=== PATIENT | male | born 1940 | race Caucasian/White ===

== ENCOUNTER 2017-04-09 10:19 | Inpatient (IN) | payer MEDICARE, OTHER ==
[~2017-04-09] VITALS: Ht 185.4 cm; Wt 115.5 kg
--- NOTE | ~2017-04-09 | ECH ---
Transthoracic Echocardiography Report (TTE) Demographics Patient Name NICKI JARVIS Date of Study 04/09/2017 Patient Number [id number] Visit Number [id number] Date of 1940 Room Number 406 Accession Number [id number] Gender Male Age 76 year(s) Referring Belle Abdalla MD Ticket Chopper Assembler Anne Trivedi [facility] Physician Nemesio Valderrama MD Physician Interpreting Christine Lubin MD Communications Senior Associate Physician Supervising Ordering Physician Nemesio Valderrama MD/JEAN GRECO Nurse Stress Adjunct Professor Of Law Conclusions Summary Technically difficult exam. The estimated left ventricular ejection fraction is 60-65%. Mild to moderate left ventricular hypertrophy. Diastolic assessment reveals Grade I diastolic dysfunction. Bubble study was done, there is no evidence for a PFO or ASD. The ascending aorta appears mildly dilated. The maximum diameter measures 4.19 cm. Procedure Type of Study TTE procedure Procedure Date Date: 04/09/2017 Start: 02:26 PM Technical Quality: Fair due to body habitus. Indications:TIA. Appropriate Use Criteria: 9 Contrast Medium: Bubble Study. Height: 73 inches Weight: 255 pounds BSA: 2.39 m Rhythm: Within normal limits HR: 71 bpm BP: 187/71 mmHg M-Mode/2D Measurements LV Diastolic Dimension: 4.29 cm LV Systolic Dimension: 2.31 cm LV Septum Diastolic: 1.36 cm LV PW Diastolic: 1.36 cm AO Root Dimension: 3.53 cm Cardiac Output: 6.31 l/min LA Dimension: 2.63 cm Cardiac Index: 2.64 l/min*m RV Diastolic Dimension: 2.88 cm LA volume index: 16 ml/m LVOT: 2.28 cm LVOT VTI: 21.78 cm RV Base: 3.07 cm LV Stroke volume: 88.88 ml RV Mid: 2.57 cm LV Stroke volume index: 37.19 ml/m RV Length: 7 cm TAPSE: 14 cm Doppler Measurements AV Peak Velocity: 1.25 m/s MV Peak E-Wave: 0.76 m/s AV Peak Gradient: 6.25 mmHg MV Peak A-Wave: 0.86 m/s AV Mean Gradient: 2.66 mmHg MV E/A Ratio: 0.89 LVOT Peak Velocity: 0.93 m/s MV P1/2t: 86.5 msec AV Area (Continuity):4.03 cm MV Deceleration Time: 298.4 msec MV Area (PHT): 2.54 cm PV Peak Velocity: 1.03 m/s PV Peak Gradient: 4.22 mmHg RA Area: 14.43 cm Findings Left Ventricle The left ventricle is normal in size . Mild to moderate left ventricular hypertrophy. Diastolic assessment reveals Grade I diastolic dysfunction. Right Ventricle Normal right ventricle structure and function. Left Atrium Normal left atrial size. Bubble study was done, there is no evidence for a PFO or ASD. Right Atrium Normal right atrial size. Mitral Valve Normal mitral valve structure and function. Aortic Valve The aortic valve is mildly sclerotic. Tricuspid Valve Normal tricuspid valve structure and function. Pulmonic Valve The pulmonic valve is not well visualized. Pericardial Effusion No evidence of pericardial effusion. Miscellaneous The ascending aorta appears mildly dilated. The maximum diameter measures 4.19 cm. Pleural Effusion No evidence of pleural effusion. Signature
--- NOTE | ~2017-04-09 | HP ---
ADMIT: 04/09/2017 RM/LOC: 406 [facility] MR#: [id number] [address] [facility] [address] [place] [id number] NICKI JARVIS [address] [place] [id number] History and Physical SEX: M AGE: 76 : 1940 DATE OF SERVICE: CHIEF COMPLAINT: Right arm weakness and expressive aphasia. HISTORY OF PRESENT ILLNESS: Mr. Jarvis is a very pleasant, 76-year-old man. He has a past medical history significant for history of coronary artery disease, carotid artery disease, COPD, chronic kidney disease, diabetes, and hypertension who was at the [facility] getting an [facility] of his cervical spine. He reports that he was having an MRI done because he had been having some neck pain as well as increasing bilateral lower extremity weakness. He was in the middle of his MRI and reports that he kind of started to feel numb all over. It sounds like when they pulled him out, he had an expressive aphasia. It lasted for a short period of time, maybe a few minutes and then was gone. He reports that then after that, he just felt numb all over. Not right side more than left. Reports that otherwise he has never had anything like this happen before. He did not take anything premedicated. He was brought over to the ER and found to have right-sided weakness which he had not really noticed. Otherwise he is felt warranted admission for further evaluation and treatment. PAST MEDICAL HISTORY: Significant for: 1. BPH. 2. Coronary artery disease, nonobstructive. 3. Carotid artery disease. 4. Chronic bilateral foot drop. 5. Chronic low back pain. 6. Lumbar spinal stenosis. 7. Status post hyperlipidemia. 8. Status post cervical fusion. 9. History of chronic kidney disease stage 3. 10.Diabetes mellitus type 2, controlled. 11.COPD. 12.History of gallstone pancreatitis status post resection. 13.History of left rotator cuff repair. 14.History of TURP. ALLERGIES: LISTED NO KNOWN MEDICAL ALLERGIES. MEDICATIONS: 1. Aspirin 81 mg p.o. daily. 2. Cetirizine 10 mg p.o. daily. 3. Lisinopril 20. 4. Hydrochlorothiazide 12.5 p.o. daily. 5. Pravastatin 40 mg p.o. daily. 6. Tamsulosin 0.4 p.o. daily. SOCIAL HISTORY: He smoked many years ago, but quit. He is . He does not drink or use any significant alcohol. FAMILY HISTORY: Positive for heart disease in his father. ADMIT: 04/09/2017 RM/LOC: 406 [facility] MR#: [id number] [address] [address] NICKI JARVIS [address] [place] [address] History and Physical SEX: M AGE: 76 : 1940 REVIEW OF SYSTEMS: Obtained, was otherwise essentially negative. PHYSICAL EXAMINATION: GENERAL: He is alert and oriented. He is a little bit slow with speaking, which is not new for him. Pupils are equal, round, reactive. Oropharynx has dry mucous membranes. NECK: Stiff. HEART: Normal rate with a regular rhythm. LUNGS: Relatively clear to auscultation and anteriorly. ABDOMEN: Soft, nontender. EXTREMITIES: He has his bilateral lower extremity braces intact. He has 4/5 x ray inspector on the right. He is unable to extend his right 4th digit. He chronically is unable to extend his middle digit. He has slightly diminished ability to hold his wrist back. He has good biceps and triceps strength. ASSESSMENT/PLAN: 1. Transient expressive aphasia with new right-sided weakness. At this time, suspect cerebrovascular accident. We will go ahead and admit, have Neurology see, get an MRI of his brain, get an echo, get carotid Dopplers. We will ask speech, PT/OT to see. Do some Accu-Cheks. Plan to check some labs. We will put him on a full aspirin, he was on a baby aspirin. 2. Carotid artery disease, we will repeat his Dopplers. 3. Hypertension. 4. Diabetes mellitus. 5. Lumbar spinal stenosis. 6. History of cervical fusion. We will go ahead and get a copy of his MRI from the [facility]. Vida Herr MD/ juan carlos JOB #: [id number] CC: Vida Herr, Attending Physician Vida Herr, Family Physician
[~2017-04-09 10:19] MED LIST: ACCUNEB DP0.63 MG/3 IH; ASA CHILDREN'S81 MG PO; BACITRACIN15 G1 TP; CIPRO500 MG PO; DELTASONE DPS10 MG PO; DUONEB DPS3 ML IH; FLAGYL500 MG PO; FLOMAX DPS0.4 MG PO; GLUTOSE 1537.5 GM PO; HUMALOG100 UNIT/1 SQ; MAALOX DPS30 ML PO; NORCO 5-325 TA1 EACH PO; OCEAN NASAL MIS45 ML IN; OMNICEF DPS300 MG PO; PRAVACHOL20 M1 PO; PRAVACHOL20 MG PO; SEA SOFT45 ML NS; SURFAK DPS240 MG PO; THERA1 EACH PO; TYLENOL DPS325 MG PO; ZESTORETIC 10/11 TAB PO; ZOFRAN ODT4 MG PO; [UNRECOGNIZED DRUG - OTHER] PO
--- NOTE | 2017-04-11 09:36 | ER ---
ADMIT: 04/09/2017 RM/LOC: 406 [facility] MR#: [id number] [address] [facility] [address] [place] [phone] NICKI JARVIS [address] [place] [id number] Emergency Room Report SEX: M AGE: 76 : 1940 DATE: 04/09/2017 TIME: 1019 hours. PRIMARY CARE: [facility] and Dr. Herr. Please refer to my T-sheet for complete H and P. HISTORY OF PRESENT ILLNESS: The patient is a 76-year-old, comes in. He was over at the [facility], getting MRI of his neck when he started having slurred speech and inability to move his right arm and numbness, both sides of his arms. By the time he gets here, his speech has improved dramatically. He still feels a little weak in his right hand. PHYSICAL EXAMINATION: VITAL SIGNS: His blood pressure is 98/57, pulse 74, respirations 18, temp 98.4, and sat 94%. GENERAL: No acute distress. HEENT: Grossly normal. LUNGS: Clear. HEART: Regular. ABDOMEN: Soft. SKIN: No rash. NEURO: He is alert and oriented. His speech has improved. His right hand has a little bit of residual weakness and a little bit of slurred speech. I gave him a stroke scale of 3. EMERGENCY ROOM COURSE: CT scan of his brain was negative. EKG was sinus rhythm, no acute changes. Chest x-ray was normal. CBC normal except hemoglobin 13.8. Chemistries normal except BUN 31, glucose 147, creatinine 1.5. Coags normal. I gave him 4 aspirin. I talked to the [facility]. They recommended 24-hour observation for they would accept. Then I talked to Dr. Herr. She will admit to the hospital. ASSESSMENT: 1. Acute transient ischemic attack, improving. 2. Bilateral hand numbness that is improving. 3. Right hand still slightly weak. 4. The patient is a non tPA candidate as he is vastly improved. PLAN: Admit to the hospital. Rebel Kemp MD/ juan carlos JOB #: [id number] CC: Vida Herr MD, Attending Physician Vida Herr MD, Family Physician
--- NOTE | 2017-04-11 17:26 | CO ---
ADMIT: 04/09/2017 RM/LOC: 406 [facility] MR#: [id number] [address] [address] NICKI JARVIS [place] [address] [place] [address] Consultation SEX: M AGE: 76 : 1940 DATE OF CONSULTATION: 04/09/2017 ATTENDING PHYSICIAN: Vida Herr CONSULTING PHYSICIAN: Rm Odonnell MD REASON FOR CONSULTATION: TIA. HISTORY OF PRESENT ILLNESS: The patient is a 76-year-old gentleman with past medical history as below, who was at [facility] today when he developed symptoms. He was actually in MRI scan, and after he was finished with this study, he was feeling numbness below his waist bilaterally and reports that he could not move the either side of the body. Reportedly, there was an episode that he was not able to find his words. By the time of arrival to [facility], majority of the symptoms cleared up. He reports that there is weakness in finger extension in right hand that is persisting. He has never experienced anything similar previously. He does not think that he was panicking or had an anxiety attack. He denies receiving any medications prior to MRI. PAST MEDICAL HISTORY: Significant for coronary artery disease, carotid artery atherosclerosis, chronic bilateral foot drop, BPH, lumbar stenosis, hyperlipidemia, status post cervical fusion, CKD stage 3, diabetes type 2, COPD. ALLERGIES: NO KNOWN DRUG ALLERGIES. MEDICATIONS: 1. Aspirin 81. 2. Cetirizine. 3. Lisinopril 20. 4. Hydrochlorothiazide. 5. Pravastatin 40. 6. Tamsulosin. REVIEW OF SYSTEMS: All systems reviewed, negative except as per HPI. Positive musculoskeletal neck pain, neurological weakness. SOCIAL HISTORY: History of smoking, quit many years ago. No illicit drug use. Alcohol occasionally. Drinks wine. FAMILY HISTORY: Noncontributory to current presentation. PHYSICAL EXAMINATION: VITAL SIGNS: Temperature 95.8, heart rate 72, respirations 16, blood pressure 118/71, saturation 95% on room air. GENERAL: The patient appears to be in no acute discomfort. HEAD: Normocephalic. NECK: Supple. CARDIOVASCULAR: Regular rate and rhythm. ADMIT: 04/09/2017 RM/LOC: 406 [facility] MR#: [id number] [address] [address] NICKI JARVIS [place] [address] [place] [address] Consultation SEX: M AGE: 76 : 1940 CHEST: Normal respiratory rises. ABDOMEN: Nondistended. EXTREMITIES: No clubbing or cyanosis. NEUROLOGICAL EXAMINATION: The patient is alert, appropriately oriented, slower. Halting type of speech. No dysarthria. The patient feels that his speech and language are at baseline. Cranial nerve examination; visual ward are intact. Pupils equal, reactive. Extraocular muscles intact. Facial sensation normal. Face is symmetric. Gacewhy-dg-pbdxl intact. Uvula midline. Palatal arch is symmetric. Shoulder shrug symmetric. Tongue midline, moveable. Motor examination reveals upper extremities, right hand difficulties with extension of the 4th and 3rd fingers. It appears as Dupuytren's contracture. Otherwise, full strength on both sides, normal tone. Lower extremities, some weakness in his right lower extremity, 4-/5, in the hip and bilateral foot drop. Sensory examination nonlateralizing to touch. Reflexes; upper extremities symmetric, knees diminished, absent ankle reflexes. Toes downgoing bilaterally. Coordination; wttaaj-mo-sluh intact. Gait; deferred at this time due to weakness. LABORATORY DATA: CBC unremarkable. INR coagulation markers normal. BMP; sodium 140, chloride 107, creatinine 1.5, BUN 31, GFR 44, CK-MB 8.5, troponin normal. BNP is 40. TTE with bubble study was performed, pending results. MRI pending. ASSESSMENT: Transient ischemic attack or vascular event versus other. I am not sure what is his baseline examination in regard to his weakness and reflexes. PLAN: We will follow TIA path with no tPA. MRI pending. Further workup and management will be determined as per its result. We will continue aspirin. So far, we will increase it to 325 mg. Thank you very much for this interesting consultation. We will continue to follow along. Rm Odonnell MD/ juan carlos JOB #: [id number] CC: Vida Herr, Attending Physician Vida Herr, Family Physician
--- NOTE | 2017-04-16 10:53 | CO ---
ADMIT: 04/09/2017 RM/LOC: 406 [facility] MR#: [id number] [address] [address] NICKI JARVIS [place] [address] [place] [address] Consultation SEX: M AGE: 76 : 1940 DATE OF CONSULTATION: 04/12/2017 ATTENDING PHYSICIAN: Vida Herr CONSULTING PHYSICIAN: Lisa Ballesteros MD HISTORY OF PRESENT ILLNESS: I saw this 76-year-old man in the hospital today, was admitted to the hospital on the of this month, 04/09/2017. He was transferred from the [place] facility to the emergency room here. History was that he was having an MRI of the cervical spine, was complaining of neck pain and some weakness in both hands, worse on the right side compared to the left. While he was having the MRI, after the MRI was completed, he complained of severe weakness in both upper and lower extremities along with inability to move his upper or lower extremities. There was numbness from his neck down and these occurred during the MRI. He was also noted to have expressive aphasia at the same time. Relevant portion of his past medical history is that he had a cervical fusion from C3 to C5 previously and he has also had lumbar spine surgery. Following the lumbar spine surgery, he developed a footdrop on the right side. This occurred more than 10 years ago, and he has also noticed that he has weakness in his left foot, inability to dorsiflex the left foot, and that has been present for more than a year. By the time he got to the emergency room, his weakness had subsided as far as he was concerned. However, the finding was that he still had right-sided weakness, which he was not aware of when he was initially brought to the emergency room. The MRI of the cervical spine, I was able to review these and these really showed severe stenosis at C5-C6. There is some disk disease at C5-C6. There is mild stenosis at C6-7, but there is still CSF present posterior as well as a small amount anterior to the spinal cord. He has complete fusion with plating from C3 to C5. PAST MEDICAL HISTORY: History of benign prostatic hypertrophy. He has coronary artery disease. He has carotid artery disease. He has chronic bilateral foot drop. He has chronic low back pain, lumbar spinal stenosis, for which I presume he had decompressive lumbar laminectomy, then anterior cervical fusion from C3 to C5. He has hyperlipidemia. He has history of chronic kidney disease, diabetic. He has COPD, history of gallstone pancreatitis. He has had a cholecystectomy for that. He has left rotator cuff repair. He has had TURP for his benign prostatic hypertrophy. ALLERGIES: NO KNOWN ALLERGIES TO MEDICATION. MEDICATIONS: See the list in the chart. FAMILY HISTORY: Family history significant in that his father had heart disease. SOCIAL HISTORY: He used to smoke many years ago but stopped smoking a number of years ago. He is . He does not drink alcohol. ADMIT: 04/09/2017 RM/LOC: 406 [facility] MR#: [id number] [address] [place] [phone] NICKI JARVIS [address] [place] [address] Consultation SEX: M AGE: 76 : 1940 REVIEW OF SYSTEMS: The review of systems was negative except for the problems sited above, which is primarily marked weakness of the hands bilaterally, numbness involving all the fingers in the right hand especially, and weakness of both feet. He has bilateral footdrop. PHYSICAL EXAMINATION: GENERAL: On examining him in the hospital today, a 76- year-old male. VITAL SIGNS: Blood pressure was 139/63. The pulse was 85 with regular respirations 16, temperature is 97.6. HEENT: Normocephalic. NECK: Some restriction of extension of the cervical spine. No restriction of flexion. CHEST: See the admitting H and P. HEART: See the admitting H and P. ABDOMEN: See the admitting H and P. NEUROLOGIC: The motor examination showed severe weakness of the hand rug setter axminster bilaterally, worse on the right side than the left. He has pitcher's fingers on the right side. In addition, he has complete footdrop on the right foot and severe weakness of the dorsiflexors of the left foot. He has paralysis of the extensor hallucis longus bilaterally. His sensory exam medically showed decreased sensation in the right hand involving all the digits in the hand. Reflexes; the biceps jerk and supinator jerk were absent bilaterally. The triceps jerk was brisk on the left side, was diminished on the right. The knee jerk was diminished on the right compared to the left. The ankle jerks were absent bilaterally. Toes were downgoing. IMPRESSION: Part of this gentleman's problems could be secondary to his severe stenosis and cord compression at C5-C6. 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 I should point out that the Tinel sign was negative at the elbows as well as at the wrists. Phalen's test was negative bilaterally. As far as the footdrop he has, I think that is secondary to a spinal pathology and it is probably a cardio from what he has had 10 years ago, though he has indicated that the left footdrop started just about a year ago. My recommendation is we should just go ahead and decompress the spinal cord at C5-C6 and fill the segment at the same time. I explained the procedure to him. He has had it before, but I had to explain it again because his fusion was a long time ago, and I also told him the possible complications, which ranged from infection to hemorrhage injury to the carotid could cause hemiplegia, stroke, as well as I told him injury to the esophagus and the trachea and injury to his spinal cord that could result in quadriplegia. I also did emphasize to him that since he had surgery before, it makes it more difficult because of scar tissue. Therefore, the chances of complications were high if he did not have previous surgery. I do not think that the numbness that he had extending from his neck all the way down along with the apparent paralysis involving all four extremities could be explained on the basis of this stenosis at C5-6. 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 However, this will not explain the expressive aphasia that he had. 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 So, in addition to the decompression, my recommendation also is that he should have nerve conduction studies done to rule out cubital tunnel syndrome. Lisa Ballesteros MD/ juan carlos JOB #: [id number] CC: Vida Herr, Attending Physician Vida Herr, Family Physician
--- NOTE | 2017-04-16 10:58 | OR ---
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 POSTOPERATIVE DIAGNOSES: 1. Cervical disk herniation, C5-6 on the right. 2. Spinal canal stenosis from osteophytes at C5-6 with cord compression and probable myelopathy. OPERATIONS PROPOSED: 1. Anterior cervical microdiskectomy, C5-6. 2. Anterior cervical fusion using allograft at C5-C6. 3. Plating using low-profile Medtronic plate. 4. Fluoroscopy with interpretation. 5. Microscope. This is a gentleman who had a previous anterior cervical fusion with plating at C3-4 and C4-5 was seen by me in consultation with progressive weakness in his left foot and also in his right hand and left hand but was on the right side. MRI done did show severe stenosis at C5-6 and mild stenosis at C6-7. It was therefore decided to take him to the operating room, and decompress the spinal cord. PROCEDURE: Under general anesthesia, the patient was positioned supine. Unfortunately we could not get any reasonable extension in his neck primarily because there was marked restriction of extension of his cervical spine from cervical spondylosis and previous fusion. So we just made to with what we had, put his head on some drapes and pulled on his on his arms bilaterally. Having done that, we then went ahead and prepped the neck, chin, upper chest in the usual manner. Next a curvilinear incision was carried out extending from the anterior border of the sternomastoid muscle to the midline. This was done at the C4-5 and C5-6 level. We started at the lateral edge of the previous incision and extended inferiorly so as to be able to get to the C5-6 disk space. We had to go through scar tissue to get to the C5-C6 level and through the scar tissue in order to be able to identify the lower end of the plate that we had put in previously. Having identified the lower end of that plate, we were then able to figure out where the C5-6 disk was. I put in a spinal needle contralateral to his C-spine which confirmed that we were at the C5-C6 level and a made an incision into the disk space to bernie the disk space. Next we then used the belt puncher for retraction. After that was done, we then went ahead and brought in the microscope. With the aid of the microscope, we removed the disk and the findings here was that there was a disk herniation on the right side which had migrated posterior to theposterior part of the C5 and C6 vertebral bodies. We were able to fish this herniating disk material out. In addition, however, he also did have cervical spondylosis which required having to remove the posterior osteophytes of the C5 and C6 vertebral bodies. After this was done, the dura was adequately decompressed and the wound was then thoroughly ADMIT: 04/09/2017 RM/LOC: 312 [facility] MR#: [id number] [address] [place] [id number] NICKI JARVIS [address] [place] [address] Operative/Delivery Room Report SEX: M AGE: 76 : 1940 irrigated with bacitracin irrigation. Next, we obtained hemostasis by using Gelfoam that was soaked in thrombin, that would achieve this. We then went ahead and curled the appropriate sized allograft which we then tapped into the empty disk space, this was 7 mm in height. After this was done, the next phase was to go ahead and get a plate and use low-profile Medtronic plate. I was able to get the proximal portion of the plate close to the lower end of the previous plates, but there was still a portion of the C5 vertebral body between the two ends of the plate. Using variable angle self-drilling screws, we were able to then screw the plates in position. For the inferior screw in the plate which is on the left side of C6 vertebral body. We had to use a rescue screw in order to get it to tighten and after putting the screws, the set screws were then turned until we got a snap. So after this was done, the wound was thoroughly irrigated with bacitracin irrigation and then closed in layers in the usual manner, first the platysma, then the skin. The patient tolerated the procedure well and was taken to the recovery room. Lisa Ballesteros MD/ juan carlos JOB #: [id number] CC: Vida Herr, Attending Physician Vida Herr, Family Physician
--- NOTE | 2017-04-19 12:10 | DS ---
ADMIT: 04/09/2017 RM/LOC: 304 [facility] MR#: [id number] [address] [place] [phone] [place] [address] Discharge Summary SEX: M AGE: 76 : 1940 ADMISSION DATE: 04/09/2017 DISCHARGE DATE: 04/18/2017 I spent 40 minutes in the discharge planning and coordination of care for this patient. DISCHARGE DIAGNOSES: 1. Expressive aphasia. 2. Right-sided distal arm weakness. 3. Suspected acute CVA/TIA (cerebrovascular accident/transient ischemic attack). 4. Marked cervical stenosis, status post C5-C6 anterior cord decompression and fusion. 5. Diabetes mellitus. 6. Chronic kidney disease. 7. Urinary retention. 8. History of hypertension. Throughout his hospital course, though, hypotension. 9. Carotid artery disease. 10.History of coronary artery disease. HOSPITAL COURSE: The patient was admitted initially after getting an MRI at the [facility] and then as it was completed having an expressive aphasia as well as right-sided distal weakness, he was brought over for what was thought to be an acute stroke. However, on further evaluation, his MRI was actually negative. We repeated an MRI of his cervical spine. There was concern that he had a large bulging disc as well as cervical stenosis. Therefore, he was taken to the OR for an anterior C3-C4 cord decompression and fusion. He tolerated this well and postop has done well except for he is having some urinary retention, otherwise doing quite well. He is planning to discharge either to the IRU or to the [facility] care unit. DISCHARGE MEDICATIONS: 1. Aspirin 325 p.o. daily. ADMIT: 04/09/2017 RM/LOC: 304 [facility] MR#: [id number] [address] [place] [address] [place] [phone] [place] [address] Discharge Summary SEX: M AGE: 76 : 1940 2. Claritin 10 mg p.o. daily. 3. Colace 100 mg p.o. b.i.d. 4. Flomax 0.4 p.o. daily. 5. Milk of magnesia daily every 2 days. 6. Pravachol 20 mg p.o. daily. 7. Senokot 1 p.o. b.i.d. 8. B12 injections IM every 7 days. 9. Dulcolax. 10.Lovenox 30 mg subcu daily. Otherwise he has some p.r.n.'s. He is to have PT/OT, Speech Therapy see him. He has a [place] in. Vida Herr MD/ ajf JOB #: [id number] CC: Vida Herr MD, Attending Physician Vida Herr MD, Family Physician
[2017-05-12] MEDS ORDERED: SENOKOT S1 TAB PO ×2 (10:29→10:33)
[2017-05-12] MEDS ORDERED: LIORESAL DPS20 MG PO (10:29)
[2017-05-12] MEDS ORDERED: VITAMIN D1000 UNI1 PO (10:29)
[2017-05-12] MEDS ORDERED: FLOMAX DPS0.4 MG PO (10:29)
[2017-05-12] MEDS ORDERED: CYANOCOBAL1000 MCG/1 IM (10:30)
[2017-05-12] MEDS ORDERED: DEBROX OTIC15 ML AD (10:31)
[2017-05-12] MEDS ORDERED: DEBROX OTIC15 ML AU (10:32)
[2017-05-12] MEDS ORDERED: DEBROX OTIC15 ML AS (10:32)
[2017-05-12] MEDS ORDERED: ULTRAM DPS50 MG PO (10:33)
[2017-05-12] MEDS ORDERED: TEARS NATURAL D15 ML OU (10:33)
[2017-05-12] MEDS ORDERED: TYLENOL EXTRA500 M1 PO (10:33)
[2017-05-12] MEDS ORDERED: DULCOLAX-DPS10 MG PR (10:34)
[2017-05-12] MEDS ORDERED: ASA325 MG PO (10:34)
[2017-05-12] MEDS ORDERED: PRAVACHOL20 MG PO (10:34)
== END 2017-04-18 12:30 | disposition short-term general hospital (02) | DRG 472 ==
LOC: ER 10:19 → 4PCU 12:06 → 3ICU 12:06 → 4PCU 15:40 → 5MS 04-13 09:52 → 3ICU 04-13 15:49
PROVIDERS: ADMIT Internal Medicine
DX: M50.022 Cervical disc disorder at C5-C6 level with myelopathy (principal); G45.9 Transient cerebral ischemic attack, unspecified; E11.22 Type 2 diabetes mellitus with diabetic chronic kidney disease; I95.9 Hypotension, unspecified; J44.9 Chronic obstructive pulmonary disease, unspecified; N18.3 Chronic kidney disease, stage 3 (moderate); M25.78 Osteophyte, vertebrae; G56.23 Lesion of ulnar nerve, bilateral upper limbs; I25.10 Atherosclerotic heart disease of native coronary artery without angina pectoris; E66.9 Obesity, unspecified; Z68.33 Body mass index [BMI] 33.0-33.9, adult; R33.9 Retention of urine, unspecified; N40.1 Benign prostatic hyperplasia with lower urinary tract symptoms; I12.9 Hypertensive chronic kidney disease with stage 1 through stage 4 chronic kidney disease, or unspecified chronic kidney disease; I65.29 Occlusion and stenosis of unspecified carotid artery; M21.372 Foot drop, left foot; M21.371 Foot drop, right foot; M48.06 Spinal stenosis, lumbar region; E78.5 Hyperlipidemia, unspecified; Z98.1 Arthrodesis status; Z79.82 Long term (current) use of aspirin; Z87.891 Personal history of nicotine dependence

== ENCOUNTER 2017-04-18 11:27 | Inpatient (IN) | payer MEDICARE, OTHER ==
[~2017-04-18] VITALS: Ht 185.4 cm; Wt 111.7 kg
[2017-05-12] MEDS ORDERED: SENOKOT S1 TAB PO ×2 (10:29→10:33)
[2017-05-12] MEDS ORDERED: VITAMIN D1000 UNI1 PO (10:29)
[2017-05-12] MEDS ORDERED: LIORESAL DPS20 MG PO (10:29)
[2017-05-12] MEDS ORDERED: FLOMAX DPS0.4 MG PO (10:29)
[2017-05-12] MEDS ORDERED: CYANOCOBAL1000 MCG/1 IM (10:30)
[2017-05-12] MEDS ORDERED: DEBROX OTIC15 ML AD (10:31)
[2017-05-12] MEDS ORDERED: DEBROX OTIC15 ML AU (10:32)
[2017-05-12] MEDS ORDERED: DEBROX OTIC15 ML AS (10:32)
[2017-05-12] MEDS ORDERED: TYLENOL EXTRA500 M1 PO (10:33)
[2017-05-12] MEDS ORDERED: TEARS NATURAL D15 ML OU (10:33)
[2017-05-12] MEDS ORDERED: ULTRAM DPS50 MG PO (10:33)
[2017-05-12] MEDS ORDERED: ASA325 MG PO (10:34)
[2017-05-12] MEDS ORDERED: DULCOLAX-DPS10 MG PR (10:34)
[2017-05-12] MEDS ORDERED: PRAVACHOL20 MG PO (10:34)
--- NOTE | 2017-06-06 14:35 | DS ---
ADMIT: 04/18/2017 RM/LOC: 616 [facility] MR#: [id number] 2620 [facility] [address] [place], [place] [phone] NICKI JARVIS [address] [place] [id number] General Discharge Summary SEX: M AGE: 76 : 1940 ADMISSION DATE: 04/18/2017 DISCHARGE DATE: 05/11/2017 DISCHARGE DIAGNOSES: Spinal cord dysfunction, nontraumatic 04.1212 quadriplegia, incomplete C5-8, M48.02 spinal stenosis, cervical region, onset 04/09/2017, more specifically critical cervical stenosis with cord compression and myelopathy status post C5-6 decompression and fusion on 04/13/2017. Comorbid conditions per initial H and P. Other diagnoses per hospital course below. HOSPITAL COURSE: Please see my initial H and P for details prior to transfer to the IRU. [place] was removed upon awakening in the morning following admission for voiding trial. Postvoid residuals were obtained. Pain and bowel regimen adjusted. Lovenox continued for DVT prophylaxis. Senokot-S for constipation. Pravachol for hyperlipidemia adjusted. Claritin for allergic rhinitis, adjusted. Percocet switched to OxyIR for pain. Postvoid residual initially 300 mL that was actually a bladder scan with no void. UA with micro, no culture obtained. Dietitian followed to optimize nutrition. Pharmacy followed to optimize medication management. Flomax and oxycodone discontinued due to nonspecific low blood pressure readings. History of B12 deficiency, but was checked B12 level. Lovenox increased to 40 mg for DVT prophylaxis. Renal function was okay, did not need to be renally dosed. Aspirin discontinued. Claritin discontinued. Tylenol adjusted for pain. Orthostatic blood pressures obtained. CBC, BMP, and ABGs obtained due to the patient's inability to feed self. The patient was seen by Dr. Herr on 04/19/2017. Flomax restarted. LFTs obtained. Tizanidine started for spasticity. P.o. fluids encouraged due to nonspecific low blood pressure readings. Zanaflex and Flomax were discontinued Pravachol discontinued not necessary and may be contributing to some side effects. Abdominal ultrasound right upper quadrant for elevated LFTs and delirium the patient was having. Feosol and vitamin C for iron deficiency with anemia. Senokot-S adjusted for constipation. Suppository after supper as needed for constipation. Speech Therapy did regular solids and liquids for diet. OxyIR adjusted for pain. EdemaWear for peripheral edema. Low air loss mattress to prevent skin breakdown. Inpatient sepsis protocol followed per Dr. Daily's disorders. Please see chart for details. Was on ceftriaxone and Levaquin IV. Ciprofloxacin for eyes and conjunctivitis. Wound care referral for suspected pressure ulcers. EzPAP t.i.d. for atelectasis. Suppository after supper for constipation. Warm water enema as needed for neck pain. We tried positioning, Tylenol, and OxyIR. Dietitian followed to optimize nutrition. Pharmacy followed to optimize medication management. Chest x-ray to follow up pneumonia. UA with micro, no culture to follow up that. Baclofen for spasms at night. Vitamin D deficiency replaced. EzPAP b.i.d. and DuoNeb b.i.d. for respiratory. Flomax restarted as blood pressure came back up. IV antibiotics switched to Levaquin p.o. for [address] Herr on 04/27/2017. No longer needed IV so that was discontinued. Scheduled DuoNeb no longer necessary. Baclofen increased to 20 mg at night for spasms. Keeping him awake. Wound Care followed up on 04/30/2017. Debrox per protocol for impacted cerumen. External auditory canal. Baclofen increased to 30 mg at night. Natural tears ADMIT: 04/18/2017 RM/LOC: 616 [facility] MR#: [id number] [address] [phone] NICKI JARVIS [address] [place] [id number] General Discharge Summary SEX: M AGE: 76 : 1940 for dry eyes. [id number] wheelchair ordered. Lab monitored regularly. [place] removed again for voiding trial on 05/08/2017. Feosol and vitamin C discontinued, no longer necessary. OxyIR switched to tramadol for pain. Postvoid residuals were 356 as per the bladder scan, no void. Again, no void, came up to 408. Dietitian followed up on 05/08/2017. Removed shiloh on 05/08/2017. Accu-Cheks q.i.d. p.r.n. for concerns of hypoglycemia. Wound Care followed up on 05/09/2017. Postvoid residuals x2 prior to discharge, those came down to 15 mL. The patient was medically stable at the time of discharge. Please see IRU interdisciplinary discharge summary for details regarding progress in therapy. DISCHARGE DISPOSITION: [facility] for continued subacute therapy. Berenice Edil provided transportation. DISCHARGE MEDICATIONS: Please see discharge med rec. FOLLOWUP: Dr. Herr on 05/17/2017. Elvira Fierro on 05/14/2017. Jayme Salvador MD/ juan carlos JOB #: [id number] CC:
== END 2017-05-11 11:30 | DRG 559 ==
LOC: 6IRU 11:27
PROVIDERS: ADMIT Physical Medicine & Rehabilitation
DX: Z47.89 Encounter for other orthopedic aftercare (principal); J18.9 Pneumonia, unspecified organism; L89.152 Pressure ulcer of sacral region, stage 2; S14.155A Other incomplete lesion at C5 level of cervical spinal cord, initial encounter; E11.22 Type 2 diabetes mellitus with diabetic chronic kidney disease; N18.3 Chronic kidney disease, stage 3 (moderate); D62 Acute posthemorrhagic anemia; J98.11 Atelectasis; M62.81 Muscle weakness (generalized); R27.8 Other lack of coordination; R26.89 Other abnormalities of gait and mobility; R26.2 Difficulty in walking, not elsewhere classified; G47.00 Insomnia, unspecified; R41.0 Disorientation, unspecified; E53.8 Deficiency of other specified B group vitamins; D50.9 Iron deficiency anemia, unspecified; H10.9 Unspecified conjunctivitis; K59.00 Constipation, unspecified; E55.9 Vitamin D deficiency, unspecified; R25.2 Cramp and spasm; H61.23 Impacted cerumen, bilateral; I12.9 Hypertensive chronic kidney disease with stage 1 through stage 4 chronic kidney disease, or unspecified chronic kidney disease; E78.5 Hyperlipidemia, unspecified; J30.9 Allergic rhinitis, unspecified; M21.372 Foot drop, left foot; M21.371 Foot drop, right foot; R03.1 Nonspecific low blood-pressure reading; N40.1 Benign prostatic hyperplasia with lower urinary tract symptoms; R33.9 Retention of urine, unspecified; I25.10 Atherosclerotic heart disease of native coronary artery without angina pectoris; R60.0 Localized edema; R53.83 Other fatigue; R53.1 Weakness; H04.129 Dry eye syndrome of unspecified lacrimal gland; X58.XXXA Exposure to other specified factors, initial encounter; Z98.1 Arthrodesis status; Z87.891 Personal history of nicotine dependence